=== PATIENT | female | born 1935 | race Caucasian/White ===

== ENCOUNTER 2017-11-12 14:32 | Emergency (ER) | payer MEDICARE ==
[~2017-11-12] VITALS: Ht 154.9 cm; Wt 61.2 kg
[~2017-11-12 14:32] MED LIST: CARAFATE1 GM PO; DIOVAN80 MG PO; PREMARIN0.45 MG PO; ZANTAC150 MG PO
[2017-11-12] MEDS ORDERED: ONDANSETRON HCL 4 MG ORAL DISINTEGRATING TAB PO ONE (15:00)
[2017-11-12] MEDS ORDERED: HYDROCODONE/APAP 5MG-325MG TAB PO ONE (15:00)
[2017-11-12 15:38] LABS: CLARITY,URINE HAZY (CLEAR); COLOR,URINE YELLOW (YELLOW); KETONES,URINE NEGATIVE (NEGATIVE); LEUKOCYTE ESTERASE ,URINE NEGATIVE (NEGATIVE); NITRITE,URINE NEGATIVE (NEGATIVE); PROTEIN,URINE DIPSTICK NEGATIVE (NEGATIVE)
[2017-11-12 15:39] LABS: BILIRUBIN,URINE NEGATIVE (NEGATIVE); URINE UROBILINOGEN 0.2 mg/dL (0.2 - 1)
--- NOTE | 2017-11-12 15:51 | Diagnostic Imaging Report ---
EXAMINATION: RIBS UNILAT W/CXR 11/12/2017 2:50 PM COMPARISON: None INDICATION: Tenderness to palpation of the right posterior rib cage DISCUSSION: 3 views of the right ribs (AP, UZBEK, LPO) One additional PA view of the chest No acute displaced right rib fracture. The lungs are clear. IMPRESSION: No acute displaced right-sided rib fracture. Kaushik Encarnacion MD Signed by: Dr. Kaushik Encarnacion M.D. on 11/12/2017 3:47 PM
--- NOTE | 2017-11-12 15:53 | Diagnostic Imaging Report ---
EXAM: Lumbar spine HISTORY: Left posterior rib cage pain COMPARISON: None DISCUSSION: 3 views of the lumbar spine (AP, lateral, L5-S1 view) There are 5 nonrib-bearing lumbar type vertebrae. Vertebral body heights are maintained. Moderate multilevel degenerative changes of the lumbar spine. 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 There is grade 1 anterolisthesis of L4. Degenerative changes of the sacroiliac joints. Soft tissues are unremarkable. IMPRESSION: Multilevel degenerative changes of the lumbar spine with grade 1 anterolisthesis of L4. Kaushik Encarnacion MD Signed by: Dr. Kaushik Encarnacion M.D. on 11/12/2017 3:50 PM
[2017-11-12 16:02] LABS: BACTERIA,URINE FEW /HPF; EPITHELIAL CELLS,URINE FEW /LPF; RBC,URINE 0-5 /HPF (0-5); WBC,URINE (MAN) 0-5 /HPF (0-5)
== END 2017-11-12 16:25 | disposition home or self-care (01) ==
LOC: ER 14:59
DX: M54.5 Low back pain (principal); S20.211A Contusion of right front wall of thorax, initial encounter; W22.09XA Striking against other stationary object, initial encounter; Y92.89 Other specified places as the place of occurrence of the external cause; I10 Essential (primary) hypertension; K92.89 Other specified diseases of the digestive system
CPT/HCPCS: 71101; 72100; 81001; 87086; 99284

== ENCOUNTER → 2020-05-22 | Day surgery (SDC) | payer MEDICARE ==
[2020-05-19 11:17] LABS: BASOPHILS # (AUTO) 0.1 (0.0-0.1); BASOPHILS % 0.7 % (0.0-1.0); EOSINOPHILS # (AUTO) 0.2 (0.0-0.4); EOSINOPHILS % 2.7 % (0.0-6.0); HEMATOCRIT 44.1 % (34.2-44.1); HEMOGLOBIN 14.1 g/dL (12.0-16.0); LYMPHOCYTES # (AUTO) 2.4 (1.0-3.2); LYMPHOCYTES % 33.4 % (18.0-39.1); MEAN CORPUSCULAR HEMOGLOBIN 29.4 pg (28-32); MEAN CORPUSCULAR VOLUME 92.1 fL (81-99); MONOCYTES # (AUTO) 0.8 (0.2-0.8); MONOCYTES % 11.3 % (4.4-11.3); NEUTROPHILS # (AUTO) 3.7 (2.1-6.9); NEUTROPHILS % 51.6 % (38.7-80.0); PLATELET COUNT 254 x10e3/uL (140-360); RED BLOOD COUNT 4.79 x10e6/uL (3.6-5.1); RED CELL DISTRIBUTION WIDTH 13.3 % (11.7-14.4)
[~2020-05-22] MED LIST changes: +CEFTRIAXONE SOD 1 GM VIAL ONE; +DONEPEZIL HCL10 MG; +LEXAPRO10 MG PO; +LIDOCAINE HCL 1% 2 ML AMP ONE; +LIDOCAINE JELLY 2% 10ML URO-JET ONE; +NITROFURANTOIN50 MG PO; +SUPPORT
[2020-05-22 08:05] VITALS: BP 147/67
== END | disposition home or self-care (01) ==
LOC: OR 06:25
PROVIDERS: ATTEND Urology
DX: N39.0 Urinary tract infection, site not specified (principal); N39.46 Mixed incontinence; N32.89 Other specified disorders of bladder; I10 Essential (primary) hypertension; Z88.6 Allergy status to analgesic agent; Z01.810 Encounter for preprocedural cardiovascular examination; Z01.812 Encounter for preprocedural laboratory examination; Z01.818 Encounter for other preprocedural examination; Z20.828 Contact with and (suspected) exposure to other viral communicable diseases
CPT/HCPCS: 36415; 52000; 71046; 85025; 93005; J0696; J2001; U0002